=== PATIENT | male | born 1955 | race Caucasian/White ===

== ENCOUNTER 2020-03-02 16:30 | Observation (INO) ==
--- NOTE | 2020-03-02 17:26 | DR.GIBLEED ---
HPI Time Seen Time Seen by Provider: 03/02/20 17:26 Complaints Chief Complaint:: PT C/O PASSING BLOOD IN HIS STOOL ( DARK RED , THAN CHANGE TO LIGHT RED ) THAT STARTED A FEW HOURS AGO ,BR Self Treatment fo Chief Complaint: PT TOOK BM MEDS THIS AM ..BR COVID-19 Coronavirus risk:travel/contact w/high risk person: No Has patient experienced Coronavirus symptoms: No Source History Provided: Patient Mode of Arrival Mode of Arrival: Ambulatory Timing Onset of Chief Complaint: 03/02/20 Quality Vomitus: Bright Red Blood PMH PMH Past Medical History: Yes Past Medical History: Anxiety, Arthritis, Dyslipidemia, Hypertension and Kidney Stones Past Surgical History: Yes Surgical History: Angioplasty/Stents Past Surgical History Comment: STENT IN KIDNEY Family History History of Family Medical Conditions: Yes Family Medical History: Cancer, DC, Coronary Artery Disease and Heart Failure Social History Does patient currently use any type of tobacco product: Yes Have you used tobacco products in the last 12 months: Yes Type of Tobacco Use: Cigarettes Does any household member use tobacco: No Alcohol Use: None Do you use any recreational Drugs:: No Lives With: Family Lives Where: Home Travel Risk Coronavirus risk:travel/contact w/high risk person: No Has patient experienced Coronavirus symptoms: No Infectious screening In the last 2 months have you had wt loss of >10#?: NO Have you had fever, night sweats or hemotysis?: No Have you traveled outside the country in the last 6 months?: No Isolation: Standard PE Vital Signs Vitals: Temperature 98.0 F Pulse Rate 81 Respiratory Rate 22 Blood Pressure [Right Arm] 134/91 Blood Pressure 93/54 O2 Sat by Pulse Oximetry 95 ROR Labs Reviewed Result Diagrams: 03/02/20 22:38 03/02/20 18:40 Laboratory: WBC 8.7 X10^3/uL (3.6-10.0) 03/02/20 18:40 RBC 4.26 X10^6/uL (4.7-6.0) L 03/02/20 18:40 Hgb 11.5 g/dL (13.5-18.0) L 03/02/20 22:38 Hct 36.2 % (42.0-54.0) L 03/02/20 22:38 MCV 89.9 fL (80.0-100.0) 03/02/20 18:40 MCH 29.1 pg (27.0-34.0) 03/02/20 18:40 MCHC 32.4 g/dL (33.0-35.0) L 03/02/20 18:40 RDW 15.4 % (11.6-16.5) 03/02/20 18:40 Plt Count 251 X10^3/uL (150.0-450.0) 03/02/20 18:40 MPV 9.2 fL (7.4-11.0) 03/02/20 18:40 Neut % (Auto) 76.1 % (42.0-75.0) H 03/02/20 18:40 Lymph % (Auto) 15.5 % (21.0-51.0) L 03/02/20 18:40 [place]ullen % (Auto) 6.6 % (0.0-13.0) 03/02/20 18:40 Eos % (Auto) 0.9 % (0.9-2.9) 03/02/20 18:40 Baso % (Auto) 0.9 % (0.2-1.0) 03/02/20 18:40 Neut # (Auto) 6.7 x10^3/uL (2.2-4.8) H 03/02/20 18:40 Lymph # (Auto) 1.4 X10^3/uL (1.3-2.9) 03/02/20 18:40 [place]ullen # (Auto) 0.6 x10^3/uL (0.3-0.8) 03/02/20 18:40 Eos # (Auto) 0.1 x10^3/uL (0.0-0.2) 03/02/20 18:40 Baso # (Auto) 0.1 X10^3/uL (0.0-0.1) 03/02/20 18:40 Absolute Nucleated RBC 0.0 /100WBC 03/02/20 18:40 Sodium 144 mmol/L (136-145) 03/02/20 18:40 Corrected Sodium TNP 03/02/20 18:40 Potassium 4.4 mmol/L (3.5-5.1) 03/02/20 18:40 Chloride 110 mmol/L (98-107) H 03/02/20 18:40 Carbon Dioxide 28.0 mmol/L (21-32) 03/02/20 18:40 BUN 29 mg/dL (7-18) H 03/02/20 18:40 Creatinine 1.64 mg/dL (0.70-1.30) H 03/02/20 18:40 Est GFR (MDRD) Af Amer 54 (>60) L 03/02/20 18:40 Est GFR (MDRD) Non-Af 45 (>60) L 03/02/20 18:40 Glucose 104 mg/dL (65-99) H 03/02/20 18:40 Calcium 8.7 mg/dL (8.5-10.1) 03/02/20 18:40 Corrected Calcium 9.6 mg/dL (8.5-10.1) 03/02/20 18:40 Total Bilirubin 0.20 mg/dL (0.2-1.0) 03/02/20 18:40 AST 12 Units/L (15-37) L 03/02/20 18:40 ALT 21 Units/L (12-78) 03/02/20 18:40 Alkaline Phosphatase 46 Units/L (46-116) 03/02/20 18:40 Total Protein 5.9 g/dL (6.4-8.2) L 03/02/20 18:40 Albumin 2.9 g/dL (3.4-5.0) L 03/02/20 18:40 Globulin 3.0 g/dL (2.5-4.5) 03/02/20 18:40 Albumin/Globulin Ratio 1.0 Ratio (1.1-2.1) L 03/02/20 18:40 Amylase 29 Units/L (25-115) 03/02/20 18:40 Lipase 101 Units/L (73-393) 03/02/20 18:40 Specimen Type Clean catch urine 03/02/20 18:45 Urine Color Yellow (YELLOW) 03/02/20 18:45 Urine Appearance Clear (CLEAR) 03/02/20 18:45 Urine pH 5.0 (5.0 - 8.0) 03/02/20 18:45 Ur Specific [place] 1.025 (1.000-1.030) 03/02/20 18:45 Urine Protein Negative (NEGATIVE) 03/02/20 18:45 Urine Glucose (UA) Negative (NEGATIVE) 03/02/20 18:45 Urine Ketones Negative (NEGATIVE) 03/02/20 18:45 Urine Occult Blood Negative (NEGATIVE) 03/02/20 18:45 Urine Nitrite Negative (NEGATIVE) 03/02/20 18:45 Urine Bilirubin Negative (NEGATIVE) 03/02/20 18:45 Urine Urobilinogen Normal (NORMAL) 03/02/20 18:45 Ur Leukocyte Esterase Negative (NEGATIVE) 03/02/20 18:45 Stool Description 150 cc liquid bloody 03/02/20 18:01 Stl Occult Blood (IFOB) Pos-microscopic (NEGATIVE) A 03/02/20 18:01 Opioid Opioid Risk Tool Age (Desean box if 16-45): No History of Preadolescent Sexual Abuse: No Total: 0 Total Score Risk Category: Low Risk Copyright: Hugo FERNANDEZ predicting aberrant behaviors
[2020-03-02] MEDS ORDERED: NS 100 ML IV 100 ML IV ONE (18:11)
[2020-03-02] MEDS ORDERED: PROTONIX INJ 40 MG VIAL ONE (18:11)
[2020-03-02] MEDS: PROTONIX INJ 40 MG VIAL 80 MG in NS 100 ML IV 80 ML IV SCH (18:29)
--- NOTE | 2020-03-02 18:35 | RAD ---
HISTORYPT C/O PASSING BLOOD IN HIS STOOL ( DARK RED, THAN CHANGE TO LIGHT RED ) THAT STARTED A FEW HOURS AGOSTUDYCHEST x-ray, 1 VIEWCOMPARISONNoneFINDINGSCardiomegaly is seen without pulmonary venous congestion. Prominent cardiophrenic fat pads are suspected with mild atelectasis. No pleural effusion or pneumothorax is seen.IMPRESSIONLikely cardiomegaly without evidence of pulmonary venous congestion.Electronically signed by: Jourdan Cedillo (Mar 02, 2020 18:32:49)
--- NOTE | 2020-03-02 18:36 | CT ---
EXAM: CT ABDOMEN AND PELVIS WITHOUT INTRAVENOUS CONTRASTHISTORY: Abdominal plain. Bleeding.TECHNIQUE: Spiral axial CT images are obtained through the abdomen and pelvis without the administration of intravenous contrast. Additional coronal and sagittal reformatted images are reconstructed.DOSIMETRY: Total DLP 1325.8 mGycm; CTDI 26.9 mGyCOMPARISON: None available.FINDINGS:GASTROINTESTINAL TRACT: There is evidence for acute sigmoid diverticulitis, marked by colonic wall thickening and pericolonic streaky inflammatory change. No drainable fluid collection, free air, or abscess formation seen. No evidence for bowel herniation, bowel obstruction, or colitis.A normal-appearing appendix is seen.GENITOURINARY SYSTEM: There is severe left renal cortical atrophy. There is mild compensatory hypertrophy of the right kidney. There are multiple tiny nonobstructing right renal calculi. There is no ureteral calculus or stigmata of obstructive uropathy. The urinary bladder, seminal vesicles, prostate gland appear grossly unremarkable for a non-dedicated exam.CT ABDOMEN: Severe aortoiliac atherosclerotic disease, without aneurysm formation. The liver, spleen, pancreas, adrenal glands, gallbladder and inferior vena cava are within normal limits for a noncontrast CT scan. There is no intra-abdominal or retroperitoneal lymphadenopathy, free fluid, or free air seen. No abdominal herniation is noted.CT PELVIS: L5/S1: Severe DDD with chronic appearing posterior disc bulge/marginal osteophyte complex, and mild hypertrophic facet joint DJD (right greater than left) contributing to severe neuroforaminal stenosis with potential for exiting L5 nerve root impingements. Clinical correlation is advised. The visualized bony structures are otherwise within normal limits. No pelvic sidewall or inguinal lymphadenopathy is seen. No inguinal herniation is noted. No free fluid or free air is seen.LUNG BASES: The lung bases are clear.IMPRESSION:1. Mild acute sigmoid diverticulitis, without free fluid, free air, or abscess formation..2. No evidence for acute appendicitis, bowel herniation/obstruction or colitis seen.4. No free fluid, free air, mass lesions, or lymphadenopathy seen.5. Multiple tiny nonobstructing right renal calculi; no ureteral stone or obstructive uropathy seen bilaterally.6. Severe left renal cortical atrophy; compensatory hypertrophy of the right kidney.Electronically signed by: Graciela Ward (Mar 02, 2020 18:34:26)
[2020-03-02 19:18] LABS: BASOPHILS # (AUTO) 0.1 X10^3/uL (0.0-0.1); BASOPHILS % (AUTO) 0.9 % (0.2-1.0); EOSINOPHILS # (AUTO) 0.1 x10^3/uL (0.0-0.2); EOSINOPHILS % (AUTO) 0.9 % (0.9-2.9); HEMATOCRIT 38.3 % (42.0-54.0); HEMOGLOBIN 12.4 g/dL (13.5-18.0); LYMPHOCYTES # (AUTO) 1.4 X10^3/uL (1.3-2.9); LYMPHOCYTES % (AUTO) 15.5 % (21.0-51.0); MEAN CORPUSCULAR HEMOGLOBIN 29.1 pg (27.0-34.0); MEAN CORPUSCULAR HGB CONC 32.4 g/dL (33.0-35.0); MEAN CORPUSCULAR VOLUME 89.9 fL (80.0-100.0); MEAN PLATELET VOLUME 9.2 fL (7.4-11.0); MONOCYTES # (AUTO) 0.6 x10^3/uL (0.3-0.8); MONOCYTES % (AUTO) 6.6 % (0.0-13.0); NEUTROPHILS # (AUTO) 6.7 x10^3/uL (2.2-4.8); NEUTROPHILS % (AUTO) 76.1 % (42.0-75.0); PLATELET COUNT 251 X10^3/uL (150.0-450.0); RED BLOOD COUNT 4.26 X10^6/uL (4.7-6.0); RED CELL DISTRIBUTION WIDTH 15.4 % (11.6-16.5); WHITE BLOOD COUNT 8.7 X10^3/uL (3.6-10.0)
[2020-03-02 19:32] LABS: ALANINE AMINOTRANSFERASE 21 Units/L (12-78); ALBUMIN 2.9 g/dL (3.4-5.0); ALKALINE PHOSPHATASE 46 Units/L (46-116); AMYLASE 29 Units/L (25-115); ASPARTATE AMINO TRANSFERASE 12 Units/L (15-37); BLOOD UREA NITROGEN 29 mg/dL (7-18); CALCIUM 8.7 mg/dL (8.5-10.1); CHLORIDE 110 mmol/L (98-107); COR CA(FOR HYPOALB) 9.6 mg/dL (8.5-10.1); CREATININE 1.64 mg/dL (0.70-1.30); LIPASE 101 Units/L (73-393); SODIUM 144 mmol/L (136-145); TOTAL PROTEIN 5.9 g/dL (6.4-8.2); eGFR NON BLACK RACES 45 (>60)
[2020-03-02 19:32] LABS: BILIRUBIN,URINE NEGATIVE (NEGATIVE); BLOOD/HEMOGLOBIN,URINE NEGATIVE (NEGATIVE); GLUCOSE, URINE NEGATIVE (NEGATIVE); KETONES,URINE NEGATIVE (NEGATIVE); LEUKOCYTE ESTERASE ,URINE NEGATIVE (NEGATIVE); NITRITES,URINE NEGATIVE (NEGATIVE); PROTEIN,URINE NEGATIVE (NEGATIVE); UROBILINOGEN,URINE NORMAL (NORMAL)
[2020-03-02 19:35] LABS: APPEARANCE,URINE CLEAR (CLEAR); COLOR,URINE YELLOW (YELLOW)
[2020-03-02 23:15] LABS: HEMATOCRIT 36.2 % (42.0-54.0); HEMOGLOBIN 11.5 g/dL (13.5-18.0)
[2020-03-03 00:34] LABS: CKMB % 3.2 % (<4); CREATINE KINASE 31 Units/L (39-308); CREATINE KINASE MB < 1.0 ng/mL (0-4.0); TROPONIN I < 0.02 ng/mL (0-1.5)
[2020-03-03 01:17] VITALS: BMI 39.6
[2020-03-03] MEDS ORDERED: PEPCID 20 MG IV PREMIX* 0 MG/0 ML BAG IV ONE (03:38)
[2020-03-03] MEDS ORDERED: NS 100 ML IV 100 ML IV ONE (03:41)
[2020-03-03] MEDS ORDERED: PROTONIX INJ 40 MG VIAL ONE (03:41)
[2020-03-03] MEDS: PROTONIX INJ 40 MG VIAL 80 MG in NS 100 ML IV 80 ML IV SCH ×2 (03:53→04:30)
[2020-03-03 08:53] LABS: CKMB % 3.1 % (<4); CREATINE KINASE 32 Units/L (39-308); CREATINE KINASE MB < 1.0 ng/mL (0-4.0); TROPONIN I < 0.02 ng/mL (0-1.5)
[2020-03-03 12:06] LABS: HEMATOCRIT 30.8 % (42.0-54.0)
[2020-03-03 12:20] VITALS: BP 143/81
[2020-03-03] MEDS ORDERED: ANUCORT-HC SUPP PR ONE (14:08)
--- NOTE | 2020-03-03 19:04 | DR.CARTERS ---
Short Stay Summary - Short Stay Summary for: Short Stay Summary for Date of:: 03/02/20 - Admission Date Date of Admission: 03/02/20 - Discharge Date Discharge Date: 03/03/20 - Admission Diagnoses (1) Lower GI bleed Status: Acute - Hospital Course Hospital Course: PT IS 64 WM ER ADMISSION WITH CO ACUTE ONSET OF BRIGHT RED BLOOD IN STOOL. PT STATES HE HAD LARGE BM, LARGE STOOLS WITH BLEEDING AFTER HE WIPED. PT REPORTS HE "THOUGHT I TORE SOMETHING" PT THE REPORTS ANOTHER BM WITH LARGE AMOUNT OF BRIGHT RED STOOL IN TOILET. PT DENIES ANY KNOWN HX OF HEMORRHOIDS. PT DENIES ANY CCC, FEVER OR FLU LIKE SYMPTOMS. PT HAD HGB 12.4 AND REPEAT 11.5 THIS AM. PT DENIES ANY BM OR BLEEDING SINCE ADMISSION. PT HAD NO VISIBLE EXTERNAL HEMORRHOIDS ON EXAM, SUSPECT INTERNAL. PT AGREED TO OUTPT COLONOSCOPY WITH DR ESTES. PT WAS GIVEN IV PROTONIX IN ER, RX FOR PROTONIX GIVEN ON DC. PT HAD PMH OF CHF AND CRF, HTN. PT STATES HE WANTED TO GO HOME, FEELS FINE. PT INSTRUCTED TO RT ER FOR RETURNED RECTAL BLEEDING. PT TOLERATED PO DIET WITHOUT ABDOMINAL PAIN OR NVD. PT TO HAVE REPEAT CBC TOMORROW AND F/U WITH PCP IN ONE WEEK. - Discharge Medications Discharge Medications: Home Medication List alprazolam 0.5 mg PO BID PRN 03/03/20 [History] clopidogrel 75 mg PO DAILY 03/03/20 [History] fenofibrate 160 mg PO HS 03/03/20 [History] lisinopril 40 mg PO DAILY 03/03/20 [History] meloxicam 15 mg PO DAILY 03/03/20 [History] pantoprazole [Protonix] 40 mg PO BID #60 tab 03/03/20 [Rx] Prescriptions: pantoprazole [Protonix] ANTHONY,IVONE Risks, benefits, and alternatives of opioids discussed: Yes Prescription drug monitoring program results: PDMP was not reviewed - Discharge Plan Disposition: HOME, SELF-CARE Condition: Stable Prescriptions: pantoprazole [Protonix] 40 mg PO BID #60 tab - Follow up/Referrals Follow up/Referrals: Efren Cash [Primary Care Provider] - 1 WEEK OLE ESTES [STAFF PHYSICIAN] - 03/11/20 2:10 pm - Instructions Instructions: Hand Washing, [id number], Managing Your Hypertension, Lower Gastrointestinal Bleeding, Rectal Bleeding, [id number] Additional Instructions: /PT WILL NEED REPEAT CBC ON Sunday03/04/[address] ESTES FOR OUTPT COLONOSCOPY Forms: Precautions for COVID19, Patient Portal, Social Distancing
== END 2020-03-03 14:23 | disposition home or self-care (01) ==
LOC: ER 16:37 → OBS 16:37
PROVIDERS: ADMIT Internal Medicine; ATTEND Internal Medicine
DX: R94.4 Abnormal results of kidney function studies; Z20.828 Contact with and (suspected) exposure to other viral communicable diseases; K52.89 Other specified noninfective gastroenteritis and colitis; I10 Essential (primary) hypertension; E78.2 Mixed hyperlipidemia; F41.8 Other specified anxiety disorders; K92.1 Melena